=== PATIENT | female | born 2000 | race Caucasian/White ===

== ENCOUNTER 2023-04-20 20:19 | Emergency (ER) | payer BC ==
[~2023-04-20] VITALS: Ht 157.5 cm; Wt 49.9 kg
[2023-04-20 22:15] VITALS: BP 122/85; TEMP 98.1
--- NOTE | 2023-04-20 22:15 | NUR ---
PARTHA FROM HOME C/O ANXIETY ATTACK SINCE 1930.PATIENT IS ANXIOUS, AOX4. ABLE TO MAKE NEEDS KNOWN. PLACED COMFORTABLY IN BED. VITALS CHECKED.
--- NOTE | 2023-04-20 22:34 | NUR ---
PATIENT LEEFT WITHOUT BEING SEEN BY THE PHYSICIAN
== END 2023-04-20 22:37 | disposition left against medical advice (07) ==
LOC: ER 20:44
DX: Z53.21 Procedure and treatment not carried out due to patient leaving prior to being seen by health care provider (principal)